=== PATIENT | male | born 1980 | race Caucasian/White ===

== ENCOUNTER 2023-11-05 01:08 | Emergency (ER) | payer OTHER ==
[~2023-11-05] VITALS: Ht 175.3 cm; Wt 86.4 kg
[2023-11-05 01:14] VITALS: BP 112/97; PULSE 76; TEMP 98.4; O2SAT 98
[2023-11-05 01:29] VITALS: RESP 16
[2023-11-05] MEDS: LORazepam 2 mg/ml vial IM ONE (02:07)
[2023-11-05 03:15] LABS: ALBUMIN 4.3 G/DL (3.4-5.0); ANION GAP 13 (8-16); BLOOD UREA NITROGEN 14 MG/DL (7-18); BUN/CREATININE RATIO 13.3 (10.0-20.0); CALCIUM 9.3 MG/DL (8.5-10.1); CHLORIDE 104 MMOL/L (99-107); CREATININE 1.05 MG/DL (0.60-1.10); GLUCOSE 125 MG/DL (70-104); POTASSIUM 4.1 MMOL/L (3.5-5.1); PRO BRAIN NATRIURETIC PEPTIDE < 30 PG/ML (0-125); SODIUM 139 MMOL/L (135-145); eCRCL 93 ML/MIN; eGFR 78 ML/MIN
== END 2023-11-05 03:42 ==
LOC: ER 01:10
DX: Z02.89 Encounter for other administrative examinations (principal); Z85.028 Personal history of other malignant neoplasm of stomach; R00.0 Tachycardia, unspecified
CPT/HCPCS: 36415; 80048; 83735; 83880; 84484; 93005; 96372; 99284; J2060